=== PATIENT | female | born 1980 | race Caucasian/White ===

== ENCOUNTER 2016-12-20 09:51 | Emergency (ER) | payer BC, MEDICAID ==
[2016-12-20 10:29] VITALS: BP 117/78
--- NOTE | 2016-12-20 10:35 | ER Document Report ---
ED Medical Screen (RME) - General Stated Complaint: TOE PAIN Notes: Patient states child accidentally hit her left great toe which caused her toenail to bend backwards. Now having an odorous drainage from the toenail. I have greeted and performed a rapid initial assessment of this patient. A comprehensive ED assessment and evaluation of the patient, analysis of test results and completion of the medical decision making process will be conducted by additional ED providers. TRAVEL OUTSIDE OF THE [place] IN LAST 30 DAYS: No - Related Data Allergies/Adverse Reactions: levofloxacin [From Levaquin] Allergy (Severe, Verified 12/20/16 10:34) RASH telithromycin [From KETEK] Allergy (Severe, Verified 12/20/16 10:34) RASH hydrocodone bitartrate [From Vicodin] Adverse Reaction (Intermediate, Verified 12/20/16 10:34) Shortness of Breath Past Medical History - Past Medical History Cardiac Medical History: Denies: Hx Coronary Artery Disease, Hx Heart Attack, Hx Hypertension Pulmonary Medical History: Denies: Hx Asthma, Hx Bronchitis, Hx COPD, Hx Pneumonia Neurological Medical History: Denies: Hx Cerebrovascular Accident, Hx Seizures Musculoskeltal Medical History: Denies Hx Arthritis - Immunizations Hx Diphtheria, Pertussis, Tetanus Vaccination: Yes Physical Exam - Vital signs Vitals: Temp Pulse Resp BP Pulse Ox 98.0 F 91 18 117/78 99 12/20/16 10:12/20/16 10:12/20/16 10:12/20/16 10:12/20/16 10:27 - Skin Notes: No drainage noted from left great toe. Course - Vital Signs Vital signs: Temp Pulse Resp BP Pulse Ox 98.0 F 91 18 117/78 99 12/20/16 10:12/20/16 10:12/20/16 10:12/20/16 10:12/20/16 10:27
[2016-12-20] MEDS ORDERED: SULFAMETHOXAZOLE/TRIMETHOPRIM 800-160 MG TABLET PO ONE (12:33)
--- NOTE | 2016-12-20 12:33 | ER Document Report ---
HPI - HPI Patient complains to provider of: great toe injury Onset: Other - Friday Onset/Duration: Sudden Quality of pain: Achy Pain Level: 4 Context: 36-year-old female son stepped on her left great toe causing the nail to flip back completely but it was still intact and connected at the nail bed. Since then 2 other times it's been stepped on. She is concerned that it is infected. There is some redness at the nail bed but it is not any worse than it was on Friday but she does have some exudate coming out from under the nail. No lymphangitis Associated Symptoms: None Exacerbated by: Walking Relieved by: Denies Similar symptoms previously: No Recently seen / treated by doctor: No - ROS ROS below otherwise negative: Yes Systems Reviewed and Negative: Yes All other systems reviewed and negative - REPRODUCTIVE Reproductive: REPORTS: : - DERM Skin Color: Normal Past Medical History - General Information source: Patient - Social History Smoking Status: Never Smoker Chew tobacco use (# tins/day): No Frequency of alcohol use: None Drug Abuse: None Lives with: Spouse/Significant other Family History: Reviewed & Not Pertinent Renal/ Medical History: Denies: Hx Peritoneal Dialysis Surgical Hx: Negative - Immunizations Hx Diphtheria, Pertussis, Tetanus Vaccination: Yes Vertical Provider Document - CONSTITUTIONAL Agree With Documented VS: Yes - INFECTION CONTROL TRAVEL OUTSIDE OF THE [place] IN LAST 30 DAYS: No - HEENT HEENT: Normocephalic - NECK Neck: Supple - RESPIRATORY O2 Sat by Pulse Oximetry: 99 - MUSCULOSKELETAL/EXTREMETIES Musculoskeletal/Extremeties: MAEW, FROM, Tender - minimal over the inflamed medial and lateral left great toenail nailbed. - NEURO Level of Consciousness: Awake, Alert - DERM Integumentary: Warm, Dry Course - Vital Signs Vital signs: Temp Pulse Resp BP Pulse Ox 98.0 F 91 18 117/78 99 12/20/16 10:27 12/20/16 10:27 12/20/16 10:27 12/20/16 10:27 12/20/16 10:27 Discharge - Discharge Clinical Impression: inflamed left great toe Injury of toenail Qualifiers: Encounter type: initial encounter Laterality: left Qualified Code(s): S99.922A - Unspecified injury of left foot, initial encounter Condition: Good Disposition: HOME, SELF-CARE Instructions: Infections ([facility]), Trimethoprim-Sulfa ([facility]) Additional Instructions: Soak toe warm soapy water 15 minutes 2 times a day Use bandage to keep the nail down Take the antibiotic prescribed Keep the nail filed her clipped down as it grows out See outplacement consultant if nail growth is a problem Return to the emergency room if increased redness pain Please complete the patient satisfaction survey if you get one, and return it.. If you do not receive a survey, then you can go to the [facility] website, [email or web address] and place your comments about your very good care. Thank you very much. It was a pleasure being your medical provider today. Prescriptions: Sulfamethoxazole/Trimethoprim [Septra-Ds 800-160 mg Tablet] 1 tab PO BID #14 tablet Referrals: KARINA ALFARO MD [Primary Care Provider] - Follow up as needed RADHA FINNEY DPM [ACTIVE STAFF] - Follow up as needed
== END 2016-12-20 12:53 | disposition home or self-care (01) ==
LOC: ER 09:51
DX: S99.922A Unspecified injury of left foot, initial encounter (principal); W50.0XXA Accidental hit or strike by another person, initial encounter
CPT/HCPCS: 99283

== ENCOUNTER 2018-08-09 17:47 | Emergency (ER) | payer SELFPAY ==
[2018-08-09 17:53] VITALS: BP 126/87
--- NOTE | 2018-08-09 18:25 | RADIOLOGY REPORT (SQ) ---
EXAM DESCRIPTION: FOOT RIGHT COMPLETE COMPLETED DATE/TIME: 08/09/2018 6:10 pm REASON FOR STUDY: Right foot pain after twisting injury COMPARISON: None. NUMBER OF VIEWS: Three views. TECHNIQUE: AP, lateral and oblique radiographic images acquired of the right foot. LIMITATIONS: None. FINDINGS: MINERALIZATION: Normal. BONES: Oblique minimally displaced fracture of the base of the 5th metatarsal. No additional fractur e. Alignment is otherwise normal. Joint spaces are normal. No erosions. Bone density is normal. JOINTS: No effusions. SOFT TISSUES: Mild soft tissue swelling overlying the base of the 5th metatarsal. No foreign body. OTHER: No other significant finding. IMPRESSION: Minimally displaced fracture of the base of the 5th metatarsal. TECHNICAL DOCUMENTATION: JOB ID: [id number] [employer]- All Rights Reserved Reading location - IP/workstation name: HE
--- NOTE | 2018-08-09 18:32 | ER Document Report ---
HPI - HPI Pain Level: 4 Notes: Patient is a 38-year-old female who presents with chief complaint of right foot and ankle pain. Patient reports she stepped wrong coming at her front door and felt a crack. Patient denies any other complaints today. - CONSTITUTIONAL Constitutional: DENIES: Fever, Chills - EENT EENT: DENIES: Sore Throat, Ear Pain, Eye problems - NEURO Neurology: DENIES: Headache, Weakness, Vision blurred, Dizzinesss / Vertigo - CARDIOVASCULAR Cardiovascular: DENIES: Chest pain - RESPIRATORY Respiratory: DENIES: Trouble Breathing, Coughing - GASTROINTESTINAL Gastrointestinal: DENIES: Abdominal Pain, Black / Bloody Stools - URINARY Urinary: DENIES: Dysuria, Urgency, Frequency - REPRODUCTIVE Reproductive: REPORTS: : - MUSCULOSKELETAL Musculoskeletal: REPORTS: Extremity pain - RIGHT ANKLE Past Medical History - General Information source: Patient - Social History Smoking Status: Current Every Day Smoker Chew tobacco use (# tins/day): No Frequency of alcohol use: None Drug Abuse: None Family History: Reviewed & Not Pertinent Patient has suicidal ideation: No Patient has homicidal ideation: No - Past Medical History Cardiac Medical History: Denies: Hx Coronary Artery Disease, Hx Heart Attack, Hx Hypertension Pulmonary Medical History: Denies: Hx Asthma, Hx Bronchitis, Hx COPD, Hx Pneumonia Neurological Medical History: Denies: Hx Cerebrovascular Accident, Hx Seizures Renal/ Medical History: Denies: Hx Peritoneal Dialysis Musculoskeletal Medical History: Denies Hx Arthritis Psychiatric Medical History: Reports: Hx Depression Past Surgical History: Reports: Hx Cholecystectomy - Immunizations Hx Diphtheria, Pertussis, Tetanus Vaccination: Yes Vertical Provider Document - CONSTITUTIONAL Notes: PHYSICAL EXAMINATION: GENERAL: Well-appearing, well-nourished and in no acute distress. HEAD: Atraumatic, normocephalic. EYES: Pupils equal round extraocular movements intact, conjunctiva are normal. ENT: Nares patent NECK: Normal range of motion LUNGS: No respiratory distress Musculoskeletal: Normal range of motion, swelling and ecchymosis noted to right foot on the dorsal surface. Cap refill less than 3 seconds, normal motor and sensation distal to injury. NEUROLOGICAL: Normal speech, normal gait. PSYCH: Normal mood, normal affect. SKIN: Warm, Dry, normal turgor, no rashes or lesions noted. - INFECTION CONTROL TRAVEL OUTSIDE OF THE [place] IN LAST 30 DAYS: No Course - Re-evaluation Re-evalutation: X-ray reveals a right fifth metatarsal fracture. Patient will be placed in splint and discharged home in stable condition. Follow-up with orthopedics. - Vital Signs Vital signs: Temp Pulse Resp BP Pulse Ox 98.5 F 94 16 126/87 H 99 08/09/18 17:50 08/09/18 17:50 08/09/18 17:50 08/09/18 17:50 08/09/18 17:50 Procedures - Immobilization Right ankle Pre-Proc Neuro Vasc Exam: Normal Immobilizer type: Crutches, Posterior ankle Performed by: PCT Post-Proc Neuro Vasc Exam: Normal Alignment checked and good: Yes Discharge - Discharge Clinical Impression: Metatarsal bone fracture Qualifiers: Encounter type: initial encounter Metatarsal bone: fifth Fracture type: closed Fracture alignment: displaced Laterality: right Qualified Code(s): S92.351A - Displaced fracture of fifth metatarsal bone, right foot, initial encounter for closed fracture Condition: Stable Disposition: HOME, SELF-CARE Additional Instructions: Fracture You have a fracture. The typical broken bone requires only protection and sufficient time for healing. "Setting" is necessary only if the bones are crooked or out of position. The physician will re-assess you periodically to make certain that the bone heals without complications. It's important that you follow the instructions given you. The initial treatment is immobilization, elevation of the injury, and cold packs. Not all fractures require a cast. Depending on the location and type of fracture, immobilization may consist of a splint, cast, sling, bulky dressing , or simply rest. The length of time required for healing depends on the location and type of fracture, and on the age of the patient. The treatment plan the physician has outlined for you is customized to your fracture and health condition. Call the doctor or return at once if pain becomes severe, or if severe swelling or numbness develop. Ice & Elevation Apply ice packs frequently against the painful area. Many different schedules are recommended, such as "20 minutes on, 20 minutes off" or "one hour ice, two hours rest." If you need to work, you may need to go longer between ice treatments. You should plan to have the area ice packed AT LEAST one- fourth of the time. The ice should be applied over the wrap, tape, or splint, or over a layer of cloth -- not directly against the skin. Some ice bags have a built-in cloth and can be put directly on the skin. Your injured part should be elevated as much as possible over the next 48 hours. Try to keep the injury above the level of the heart. Avoid use of the injured area. Elevation and rest will decrease the swelling. Splint Pending Casting Your injury can't be casted until the swelling has subsided. Therefore, a temporary splint has been placed to protect the injury. Full use of an injured area is not possible in a splint. You should follow the doctor's instructions concerning rest, ice, and elevation of the injury. Never do anything which causes pain under the splint. Keep the splint on ALL THE TIME until you return for casting. If there is unexpected severe pain, or numbness, discoloration, or swelling beyond the splint, you should return at once. Use of Crutches The doctor has recommended that you not bear weight at this time. You will need to use crutches. Adjust the crutches so the tops come to about two inches under the armpit while you are standing upright. Use your hands -- not your armpits -- to support your weight. To get into a chair, support yourself with one crutch on the injured side. Hold the chair with the other hand, then lower yourself while putting all your weight on the good leg. Going up stairs is `good leg up, step up, then bring up crutches and bad leg.' Down stairs is `bad leg and crutches down, then bring good leg down.' If you develop numbness or swelling in an arm or hand, you are using the crutches incorrectly. Return if you are having any problems with the crutches. Take ibuprofen 600 mg every 6 hours for pain and inflammation. Use the hydrocodone for severe pain only as prescribed. Follow-up with orthopedics as we discussed. Absolutely no weightbearing until you have been cleared by orthopedics. Prescriptions: Hydrocodone Bit/Acetaminophen [Hydrocodon-Acetaminophen 5-325] 1 each PO Q4H # 12 tablet Forms: Return to Work Referrals: RAUL KAMINSKI MD [ACTIVE STAFF] - Follow up as needed
== END 2018-08-09 18:57 | disposition home or self-care (01) ==
LOC: ER 17:47
DX: O9A.219 Injury, poisoning and certain other consequences of external causes complicating pregnancy, unspecified trimester (principal); S92.351A Displaced fracture of fifth metatarsal bone, right foot, initial encounter for closed fracture; O99.89 Other specified diseases and conditions complicating pregnancy, childbirth and the puerperium; M25.571 Pain in right ankle and joints of right foot; X50.0XXA Overexertion from strenuous movement or load, initial encounter; O99.330 Smoking (tobacco) complicating pregnancy, unspecified trimester
CPT/HCPCS: 99283

== ENCOUNTER 2019-02-23 18:12 | Emergency (ER) | payer SELFPAY ==
--- NOTE | 2019-02-23 20:11 | ER Document Report ---
HPI - HPI Patient complains to provider of: Right foot pain Time Seen by Provider: 02/23/19 20:02 Onset: This morning Onset/Duration: Sudden Quality of pain: Achy Pain Level: 4 Context: Patient states she was walking in her house and had a sudden onset of right lateral foot pain. Patient states she has a previous history of fracture last year to the fifth metatarsal and has pain in the same location with swelling. Patient denies any recent traumatic injury. Associated Symptoms: Other - Right foot pain Exacerbated by: Standing, Movement, Walking Relieved by: Denies Similar symptoms previously: Yes Recently seen / treated by doctor: No - ROS ROS below otherwise negative: Yes Systems Reviewed and Negative: Yes All other systems reviewed and negative - NEURO Neurology: DENIES: Weakness - GASTROINTESTINAL Gastrointestinal: DENIES: Nausea - REPRODUCTIVE Reproductive: DENIES: : - MUSCULOSKELETAL Musculoskeletal: REPORTS: Extremity pain, Swelling - DERM Skin Problems: None Past Medical History - General Information source: Patient - Social History Smoking Status: Never Smoker Frequency of alcohol use: None Drug Abuse: None Occupation: None Lives with: Spouse/Significant other Family History: Reviewed & Not Pertinent Renal/ Medical History: Denies: Hx Peritoneal Dialysis Musculoskeletal Medical History: Denies Hx Arthritis Psychiatric Medical History: Reports: Hx Anxiety, Hx Depression Past Surgical History: Reports: Hx Cholecystectomy - Immunizations Hx Diphtheria, Pertussis, Tetanus Vaccination: Yes Vertical Provider Document - CONSTITUTIONAL Agree With Documented VS: Yes Exam Limitations: No Limitations General Appearance: WD/WN, No Apparent Distress - INFECTION CONTROL TRAVEL OUTSIDE OF THE [place] IN LAST 30 DAYS: No - HEENT HEENT: Atraumatic, Normocephalic - NECK Neck: Normal Inspection - RESPIRATORY Respiratory: No Respiratory Distress - CARDIOVASCULAR Pulses: Normal: Dorsalis pedis - BACK Back: Normal Inspection - MUSCULOSKELETAL/EXTREMETIES Musculoskeletal/Extremeties: MAEW, Tender - Tenderness to right foot to the base of the fifth metatarsal with overlying edema, Edema - NEURO Level of Consciousness: Awake, Alert, Appropriate Motor/Sensory: No Motor Deficit - DERM Integumentary: Warm, Dry, No Rash Course - Re-evaluation Re-evalutation: 02/23/19 20:10 Offered patient pain medication, patient declined 02/23/19 20:14 pt now requesting pain medication 02/23/19 21:02 Patient without any acute fracture noted on radiology report. Patient does have objective swelling at point of tenderness. Will immobilize and encourage outpatient follow-up with her orthopedic surgeon for recheck. Patient states that she does have crutches in her vehicle. - Vital Signs Vital signs: Temp Pulse Resp BP Pulse Ox 98.2 F 103 H 15 123/86 H 100 02/23/19 18:39 02/23/19 18:39 02/23/19 18:39 02/23/19 18:39 02/23/19 18:39 - Diagnostic Test Radiology reviewed: Image reviewed, Reports reviewed Procedures - Immobilization Right Foot Pre-Proc Neuro Vasc Exam: Normal Immobilizer type: Posterior ankle Performed by: PCT Post-Proc Neuro Vasc Exam: Normal Alignment checked and good: Yes Discharge - Discharge Clinical Impression: Right foot pain Condition: Stable Disposition: HOME, SELF-CARE Instructions: Use of Crutches ([facility]), Ice & Elevation ([facility]), Oral Narcotic Medication ([facility]), Possible Hidden Fracture ([facility]), Temporary Splint ([facility]) Additional Instructions: Return immediately for any new or worsening symptoms Followup with your primary care provider, call tomorrow to make a followup appointment With Dr. Kaminski for a recheck, call tomorrow for an appointment Prescriptions: Naproxen [Naprosyn 250 Nmg Tablet] 1 tab PO BID #14 tablet Oxycodone HCl/Acetaminophen [Percocet 5-325 mg Tablet] 1 tab PO ASDIR PRN #10 tablet PRN Reason: Referrals: KARINA ALFARO MD [Primary Care Provider] - Follow up as needed RAUL KAMINSKI MD [ACTIVE STAFF] - Follow up tomorrow
[2019-02-23] MEDS ORDERED: OXYCODONE-ACETAMINOPHEN 5-325 MG TABLET PO ONE (20:14)
--- NOTE | 2019-02-23 20:54 | RADIOLOGY REPORT (SQ) ---
EXAM DESCRIPTION: XR FOOT 3 OR MORE VIEWS COMPLETED DATE/TME: 02/23/2019 20:10 CLINICAL HISTORY: 38 years, Female, r 5th MT pain, swelling COMPARISON: 08/09/2018. NUMBER OF VIEWS: Three TECHNIQUE: Three views of the RIGHT foot were obtained in AP, lateral and oblique projection. LIMITATIONS: None. FINDINGS: Deformity of the base of the fifth digit metatarsal suggests sequela of prior fracture. No acute fracture or dislocation is identified. The soft tissues are within normal limits. The joint spaces are preserved. IMPRESSION: 1. Chronic deformity of the base of the fifth digit metatarsal compatible with sequela of prior fracture. 2. No acute fracture or dislocation. copyright 2010 [employer]- All Rights Reserved
[2019-02-23 21:32] VITALS: BP 123/83
== END 2019-02-23 21:39 | disposition home or self-care (01) ==
LOC: ER 18:12
DX: M79.671 Pain in right foot (principal); Z90.49 Acquired absence of other specified parts of digestive tract
CPT/HCPCS: 99283

== ENCOUNTER 2019-07-29 05:30 | Day surgery (SDC) | payer OTHER ==
[2019-07-27 10:44] LABS: APPEARANCE,URINE CLEAR; BILIRUBIN,URINE NEGATIVE (NEGATIVE); COLOR,URINE STRAW; GLUCOSE, URINE NEGATIVE (NEGATIVE); KETONES,URINE NEGATIVE (NEGATIVE); LEUKOCYTE ESTERASE,URINE NEGATIVE (NEGATIVE); NITRITE,URINE NEGATIVE (NEGATIVE); PROTEIN,URINE NEGATIVE (NEGATIVE)
[2019-07-27 10:45] LABS: URINE SPECIFIC GRAVITY 1.014
[2019-07-27 10:54] LABS: HEMATOCRIT 35.6 % (36.0-47.0); HEMOGLOBIN 11.1 g/dL (12.0-15.5); MEAN CORPUSCULAR HEMOGLOBIN 22.7 pg (27.0-33.4); MEAN CORPUSCULAR HGB CONC 31.3 g/dL (32.0-36.0); MEAN CORPUSCULAR VOLUME 73 fl (80-97); PLATELET COUNT 384 10^3/uL (150-450); WHITE BLOOD COUNT 6.1 10^3/uL (4.0-10.5)
[2019-07-27 11:49] LABS: ALBUMIN 4.4 g/dL (3.5-5.0); ALKALINE PHOSPHATASE 66 U/L (38-126); ANION GAP 10 (5-19); ASPARTATE AMINO TRANSFERASE 23 U/L (14-36); BILIRUBIN,DIRECT 0.1 mg/dL (0.0-0.4); BILIRUBIN,TOTAL 0.4 mg/dL (0.2-1.3); BLOOD UREA NITROGEN 11 mg/dL (7-20); CALCIUM 9.5 mg/dL (8.4-10.2); CARBON DIOXIDE 27 mmol/L (22-30); CHLORIDE 102 mmol/L (98-107); POTASSIUM 4.6 mmol/L (3.6-5.0); TOTAL PROTEIN 7.3 g/dL (6.3-8.2)
[2019-07-27 11:57] LABS: GLUCOSE 66 mg/dL (75-110)
[~2019-07-29 05:30] MED LIST: CLINDAMYCIN 900 MG/D5W RTU 900 MG/50 ML RTUPB IV ONE; CLINDAMYCIN 900 MG/D5W RTU 900 MG/50 ML RTUPB IV PRN; GENTAMICIN SULFATE 120 MG in DEXTROSE 5%-WATER 100 ML IV PRN; LACTATED RINGERS 1000 ML IV PRN; LIDOCAINE 0.5% INJ-PF (5 MG/ML) 50 ML SDV SUBCUT PRN
[2019-07-29] MEDS ORDERED: MIDAZOLAM 2 MG/2 ML INJ ONE ×2 (06:41→07:10)
[2019-07-29] MEDS ORDERED: ONDANSETRON HCL INJ/PF 4 MG/2 ML SDV ONE (06:41)
[2019-07-29] MEDS ORDERED: MIDAZOLAM 2 MG/2 ML INJ IV ONE (07:00)
[2019-07-29] MEDS ORDERED: ONDANSETRON HCL INJ/PF 4 MG/2 ML SDV IV ONE (07:00)
[2019-07-29] MEDS ORDERED: METHYLENE BLUE 50 MG/10 ML AMPULE ONE (07:06)
[2019-07-29] MEDS ORDERED: BUPIVACAINE HCL 0.5%/EPI 1:200000 INJ 1.8 ML CARTRIDGE ONE (07:06)
[2019-07-29] MEDS ORDERED: PROPOFOL INJ 200 MG/20 ML VIAL IV ONE (07:10)
[2019-07-29] MEDS ORDERED: FENTANYL CITRATE INJ/PF 250 MCG/5 ML AMPULE ONE (07:10)
[2019-07-29] MEDS ORDERED: LIDOCAINE 0.5%/EPINEPHRINE INJ 50 ML VIAL ONE (07:39)
[2019-07-29] MEDS ORDERED: LIDOCAINE 0.5%/EPINEPHRINE INJ 50 ML VIAL INJ ONE (07:40)
[2019-07-29] MEDS ORDERED: FENTANYL CITRATE INJ/PF 100 MCG/2 ML AMPUL IV PRN ×3 (07:45)
[2019-07-29] MEDS ORDERED: DIPHENHYDRAMINE HCL 50 MG/ML VIAL IV PRN (07:45)
[2019-07-29] MEDS ORDERED: OXYCODONE-ACETAMINOPHEN 5-325 MG TABLET PO PRN ×2 (07:45)
[2019-07-29] MEDS ORDERED: MEPERIDINE HCL/PF INJ 25 MG/1 ML DISP.SYRIN IV PRN (07:45)
[2019-07-29] MEDS ORDERED: PROMETHAZINE HCL INJ 25 MG/1 ML VIAL IV PRN ×2 (07:45)
[2019-07-29] MEDS ORDERED: GLYCOPYRROLATE 1 MG/5 ML VIAL ONE (08:30)
[2019-07-29] MEDS ORDERED: KETOROLAC TROMETHAMINE 60 MG/2 ML SDV ONE (08:30)
[2019-07-29] MEDS ORDERED: SUCCINYLCHOLINE CHLORIDE INJ 200 MG/10 ML VIAL ONE (08:30)
[2019-07-29] MEDS ORDERED: LIDOCAINE 2% INJ-PF (20 MG/ML) 2 ML AMPUL ONE (08:30)
[2019-07-29] MEDS ORDERED: DEXAMETHASONE SOD PHOSPHATE INJ 4 MG/1 ML VIAL ONE (08:30)
[2019-07-29] MEDS ORDERED: PROMETHAZINE HCL INJ 25 MG/1 ML VIAL ONE (09:05)
[2019-07-29] MEDS: FENTANYL CITRATE INJ/PF 100 MCG/2 ML AMPUL ONE ×2 (09:05→09:15)
[2019-07-29] MEDS ORDERED: ACETAMINOPHEN 1,000 MG/100 ML RTUPB IV ONE ×2 (09:06→17:00)
--- NOTE | 2019-07-29 09:13 | Operative Report ---
Operative Report DATE OF SURGERY: 07/29/19 PREOPERATIVE DIAGNOSIS: abnormal uterine bleeding, anemia, pelvic pain POSTOPERATIVE DIAGNOSIS: Same OPERATION: Transvaginal hysterectomy with bilateral salpingectomy SURGEON: AMY HODGSON ANESTHESIA: GA TISSUE REMOVED OR ALTERED: Uterus cervix and bilateral fallopian tubes COMPLICATIONS: None ESTIMATED BLOOD LOSS: 320 cc INTRAOPERATIVE FINDINGS: 12-week size uterus boggy in appearance consistent with adenomyosis right ovary with cyst benign-appearing on it, left ovary normal. Fallopian clips removed with fallopian tubes at the time of salpingectomies PROCEDURE: Patient was taken to the operating room prepared and draped in normal sterile fashion a dorsal lithotomy position in [facility]. Placed in the posterior fourchette retractor was placed in the anterior fourchette. Cervix was grasped with a triple tooth tenaculum and injected circumferentially with 10 cc of lidocaine with epi. The cervix was then scored with a 10 blade and a circumferential fashion and was dissected away from the uterus using Salgado's. The anterior cul-de-sac was entered sharply with the Mayos and the [place] blade was placed in the anterior cul-de-sac underneath the bladder. Posterior cul-de-sac was then also entered sharply and the weighted speculum was replaced with a long weighted speculum. the uterosacral ligaments were then clamped and cut with Janee clamps and Salgado scissors these pedicles were tied off with 2-0 Vicryl tagged with hemostats. The rest of the uterine artery was then ligated on both sides using the LigaSure. The uterus was flipped once we reached the fundus of the mucosa was ligated using the LigaSure specimen was completely freed. We swept the bowel back with sponge sticks were the fallopian tubes were visible the fallopian tubes were removed using the LigaSure following the mesosalpinx. The vaginal cuff was found to be bleeding slightly on the right apex. There of 8 suture was placed with 0 Vicryl pop-off and hemostasis was obtained at this point. the angle of the vaginal cuff was then with grasped pickups and the vaginal cuff was closed with an 0 Vicryl runner. The procedure was then concluded. A small cole in the vaginal mucosa was noted right vaginal sidewall was closed with a [id number] suture of 0 Vicryl pop-off. Patient was taken to recovery in stable condition sponge lap and needle counts were correct x2
[2019-07-29] MEDS ORDERED: RINGERS SOLUTION,LACTATED 1,000 ML IV PRN (09:17)
[2019-07-29] MEDS: OXYCODONE-ACETAMINOPHEN 5-325 MG TABLET PO PRN (11:40)
[2019-07-29 12:47] LABS: HEMATOCRIT 25.8 % (36.0-47.0); MEAN CORPUSCULAR HEMOGLOBIN 23.2 pg (27.0-33.4); MEAN CORPUSCULAR HGB CONC 31.6 g/dL (32.0-36.0); MEAN CORPUSCULAR VOLUME 74 fl (80-97); RED BLOOD COUNT 3.52 10^6/uL (3.72-5.28); RED CELL DISTRIBUTION WIDTH 25.1 % (11.5-14.0)
[2019-07-29] MEDS: MORPHINE SULFATE 10 MG/ML INJ IV PRN ×2 (12:49→18:41)
[2019-07-29] MEDS ORDERED: RINGERS SOLUTION,LACTATED 1,000 ML IV ONE (13:00)
[2019-07-29 13:01] LABS: WHITE BLOOD COUNT 14.1 10^3/uL (4.0-10.5)
[2019-07-29 13:02] LABS: HEMOGLOBIN 8.2 g/dL (12.0-15.5); PLATELET COUNT 343 10^3/uL (150-450)
[2019-07-29] MEDS: KETOROLAC TROMETHAMINE INJ/PF 30 MG/1 ML SDV IV SCH ×2 (14:43→23:13)
[2019-07-29] MEDS ORDERED: HYDROXYZINE PAMOATE 50 MG CAPSULE PO SCH (22:00)
[2019-07-29] MEDS ORDERED: LORAZEPAM 0.5 MG TABLET PO PRN (22:11)
[2019-07-30] MEDS: OXYCODONE-ACETAMINOPHEN 5-325 MG TABLET PO PRN ×4 (00:57→21:20)
[2019-07-30] MEDS: KETOROLAC TROMETHAMINE INJ/PF 30 MG/1 ML SDV IV SCH (05:34)
[2019-07-30 05:45] LABS: HEMATOCRIT 21.9 % (36.0-47.0); MEAN CORPUSCULAR HEMOGLOBIN 23.7 pg (27.0-33.4); MEAN CORPUSCULAR HGB CONC 32.4 g/dL (32.0-36.0); MEAN CORPUSCULAR VOLUME 73 fl (80-97); PLATELET COUNT 348 10^3/uL (150-450); RED CELL DISTRIBUTION WIDTH 25.4 % (11.5-14.0); WHITE BLOOD COUNT 12.1 10^3/uL (4.0-10.5)
[2019-07-30 06:22] LABS: HEMOGLOBIN 7.1 g/dL (12.0-15.5)
[2019-07-30] MEDS ORDERED: FERROUS SULFATE 325 MG TABLET PO SCH (10:00)
[2019-07-30] MEDS ORDERED: WELLBUTRIN 150 MG PO SCH (10:00)
[2019-07-30] MEDS ORDERED: CYANOCOBALAMIN (VITAMIN B-12) 1,000 MCG TABLET PO SCH (10:00)
[2019-07-30] MEDS ORDERED: ACETAMINOPHEN 325 MG TABLET PO ONE (10:30)
[2019-07-30] MEDS ORDERED: DIPHENHYDRAMINE HCL 50 MG CAPSULE PO ONE (10:30)
[2019-07-30] MEDS ORDERED: IBUPROFEN 800 MG TABLET PO PRN (14:00)
--- NOTE | 2019-07-30 17:39 | PDOC DISCHARGE SUMMARY ---
Impression - Admit/DC Date/PCP Admission Date/Primary Care Provider: KARINA ALFARO MD Discharge Date: 07/30/19 - Discharge Diagnosis (1) Pelvic pain Is this a current diagnosis for this admission?: Yes (2) Abnormal uterine bleeding (AUB) Is this a current diagnosis for this admission?: Yes (3) Anemia Is this a current diagnosis for this admission?: Yes (4) Blood transfusion during current hospitalisation Is this a current diagnosis for this admission?: Yes - Assessment Summary: 39yo with AUB and pelvic pain and anemia presented to [facility] for scheduled Hysterectomy - Additional Information Resuscitation Status: Full Code Discharge Diet: As Tolerated Discharge Activity: Activity As Tolerated, No Driving, No Lifting Over 10 Pounds, Pelvic Rest Referrals: AMY HODGSON MD [ACTIVE STAFF] - 08/13/19 1:00 pm (Please keep your scheduled follow up appointment with Dr Hodgson on 08/13/19 at 1:00. If you have any questions please call the office directly at .) Prescriptions: Oxycodone HCl/Acetaminophen [Percocet 5-325 mg Tablet] 2 tab PO Q6HP PRN 7 Days #30 tablet PRN Reason: Ibuprofen [Motrin 800 mg Tablet] 800 mg PO Q8HP PRN 30 Days #90 tablet PRN Reason: Docusate Sodium [Colace 100 mg Capsule] 100 mg PO BID 30 Days #60 capsule Ferrous Sulfate [Feosol 325 mg Tablet] 325 mg PO BID 30 Days #60 tablet Simethicone [Gas Relief 80] 80 mg PO QID 15 Days #60 tab.chew Home Medications: Bupropion HCl [Bupropion Xl] 150 mg PO DAILY 07/27/19 Hydroxyzine HCl [Atarax 25 mg Tablet] 50 mg PO QHS 07/27/19 Cyanocobalamin (Vitamin B-12) [Vitamin B-12 1000 mcg Tablet] 1,000 mcg PO DAILY 07/29/19 Cyanocobalamin (Vitamin B-12) [Vitamin B-12 1000 mcg Tablet] 1,000 mcg PO DAILY tablet 07/30/19 Docusate Sodium [Colace 100 mg Capsule] 100 mg PO BID 30 Days #60 capsule 07/30/19 Ferrous Sulfate [Feosol 325 mg Tablet] 325 mg PO BID 30 Days #60 tablet 07/30/19 Hydroxyzine Pamoate [Vistaril 50 mg Capsule] 50 mg PO QHS capsule 07/30/19 Ibuprofen [Motrin 800 mg Tablet] 800 mg PO Q8HP PRN 30 Days #90 tablet 07/30/19 Lorazepam [Ativan 0.5 mg Tablet] 0.5 mg PO Q6HP PRN tablet 07/30/19 Oxycodone HCl/Acetaminophen [Percocet 5-325 mg Tablet] 2 tab PO Q6HP PRN 7 Days #30 tablet 07/30/19 Simethicone [Gas Relief 80] 80 mg PO QID 15 Days #60 tab.chew 07/30/19 History of Present Illiness History of Present Illness: ADAIR CURRY is a 39 year old female with AUB and pelvic pain and anemia presented to [facility] for scheduled Hysterectomy (transvaginal hysterectomy with bilateral salpingectomy) and was noted to be anemic on postop day #1 and transfusion 2 units on POD#1. Hospital Course Hospital Course: 39 year old female with AUB and pelvic pain and anemia presented to [facility] for scheduled Hysterectomy (transvaginal hysterectomy with bilateral salpingectomy) and was noted to be anemic on postop day #1 and transfusion 2 units on POD#1. Due to delay of transfusion and long time to give 2 units and then repeat CBC. Upon return of labs it was just aftermidnight on 07/31. Reviewed with patient that she could stay but she desires to go home. Pt c/o itching now several hours after infusion of PRBCs. Plan for give vistaril at home. F/u in the office as scheduled. Physical Exam - Physical Exam Vital Signs: Temp Pulse Resp BP Pulse Ox 98.3 F 67 16 104/58 L 100 07/30/19 16:15 07/30/19 16:15 07/30/19 16:15 07/30/19 16:15 07/30/19 16:15 Intake & Output 07/29/19 07/30/19 07/31/19 06:59 06:59 06:59 Intake Total 1530 300 Output Total 2250 250 Balance -720 50 Weight 74.84 kg General appearance: PRESENT: no acute distress, well-developed, well-nourished Head exam: PRESENT: atraumatic, normocephalic Respiratory exam: PRESENT: clear to auscultation carmel, symmetrical, unlabored Cardiovascular exam: PRESENT: RRR. ABSENT: diastolic murmur, rubs, systolic murmur Pulses: PRESENT: normal dorsalis pedis pul, +2 pedal pulses bilateral GI/Abdominal exam: PRESENT: normal bowel sounds, soft. ABSENT: distended, guarding, mass, organolmegaly, rebound, tenderness Rectal exam: PRESENT: deferred Neurological exam: PRESENT: alert, awake, oriented to person, oriented to place, oriented to time, oriented to situation, CN II-XII grossly intact. ABSENT: motor sensory deficit Psychiatric exam: PRESENT: appropriate affect, normal mood. ABSENT: homicidal ideation, suicidal ideation Skin exam: PRESENT: dry, intact, warm. ABSENT: cyanosis, rash Results Laboratory Results: WBC 12.1 10^3/uL (4.0-10.5) H 07/30/19 05:22 RBC 3.00 10^6/uL (3.72-5.28) L 07/30/19 05:22 Hgb 7.1 g/dL (12.0-15.5) L 07/30/19 05:22 Hct 21.9 % (36.0-47.0) L 07/30/19 05:22 MCV 73 fl (80-97) L 07/30/19 05:22 MCH 23.7 pg (27.0-33.4) L 07/30/19 05:22 MCHC 32.4 g/dL (32.0-36.0) 07/30/19 05:22 RDW 25.4 % (11.5-14.0) H 07/30/19 05:22 Plt Count 348 10^3/uL (150-450) 07/30/19 05:22 Sodium 139.3 mmol/L (137-145) 07/27/19 10:37 Potassium 4.6 mmol/L (3.6-5.0) 07/27/19 10:37 Chloride 102 mmol/L (98-107) 07/27/19 10:37 Carbon Dioxide 27 mmol/L (22-30) 07/27/19 10:37 Anion Gap 10 (5-19) 07/27/19 10:37 BUN 11 mg/dL (7-20) 07/27/19 10:37 Creatinine 0.82 mg/dL (0.52-1.25) 07/27/19 10:37 Est GFR ( Amer) > 60 (>60) 07/27/19 10:37 Est GFR (MDRD) Non-Af > 60 (>60) 07/27/19 10:37 Glucose 66 mg/dL (75-110) L 07/27/19 10:37 Calcium 9.5 mg/dL (8.4-10.2) 07/27/19 10:37 Total Bilirubin 0.4 mg/dL (0.2-1.3) 07/27/19 10:37 Direct Bilirubin 0.1 mg/dL (0.0-0.4) 07/27/19 10:37 Neonat Total Bilirubin Not Reportable 07/27/19 10:37 Neonat Direct Bilirubin Not Reportable 07/27/19 10:37 Neonat Indirect Bili Not Reportable 07/27/19 10:37 AST 23 U/L (14-36) 07/27/19 10:37 ALT 17 U/L (<35) 07/27/19 10:37 Alkaline Phosphatase 66 U/L (38-126) 07/27/19 10:37 Total Protein 7.3 g/dL (6.3-8.2) 07/27/19 10:37 Albumin 4.4 g/dL (3.5-5.0) 07/27/19 10:37 Urine Color STRAW 07/27/19 09:55 Urine Appearance CLEAR 07/27/19 09:55 Urine pH 7.0 (5.0-9.0) 07/27/19 09:55 Ur Specific Homer 1.014 07/27/19 09:55 Urine Protein NEGATIVE mg/dL (NEGATIVE) 07/27/19 09:55 Urine Glucose (UA) NEGATIVE mg/dL (NEGATIVE) 07/27/19 09:55 Urine Ketones NEGATIVE mg/dL (NEGATIVE) 07/27/19 09:55 Urine Blood NEGATIVE (NEGATIVE) 07/27/19 09:55 Urine Nitrite NEGATIVE (NEGATIVE) 07/27/19 09:55 Urine Bilirubin NEGATIVE (NEGATIVE) 07/27/19 09:55 Urine Urobilinogen 2.0 mg/dL (<2.0) H 07/27/19 09:55 Ur Leukocyte Esterase NEGATIVE (NEGATIVE) 07/27/19 09:55 Urine WBC (Auto) 1 /HPF 07/27/19 09:55 Urine RBC (Auto) 6 /HPF 07/27/19 09:55 Squamous Epi Cells Auto 4 /HPF 07/27/19 09:55 Urine Mucus (Auto) MANY /LPF 07/27/19 09:55 Urine Ascorbic Acid NEGATIVE (NEGATIVE) 07/27/19 09:55 Urine HCG, Qual NEGATIVE (NEGATIVE) 07/27/19 09:55 Blood Type O POSITIVE 07/30/19 10:47 Blood Type Confirm O POSITIVE 07/27/19 10:37 Antibody Screen NEGATIVE 07/30/19 10:47 Crossmatch See Detail 07/30/19 10:47 Plan Time Spent: Less than 30 Minutes Stroke Is this a Stroke Patient?: No Acute Heart Failure - Is this a Heart Failure Patient?: No
[2019-07-30 23:09] LABS: HEMATOCRIT 31.8 % (36.0-47.0); MEAN CORPUSCULAR HGB CONC 33.5 g/dL (32.0-36.0); PLATELET COUNT 307 10^3/uL (150-450); RED BLOOD COUNT 4.09 10^6/uL (3.72-5.28); WHITE BLOOD COUNT 8.7 10^3/uL (4.0-10.5)
[2019-07-30 23:14] LABS: HEMOGLOBIN 10.6 g/dL (12.0-15.5); MEAN CORPUSCULAR VOLUME 78 fl (80-97)
[2019-07-30 23:27] LABS: RED CELL DISTRIBUTION WIDTH 26.6 % (11.5-14.0)
--- NOTE | 2019-07-31 00:33 | PDOC PROGRESS REPORT ---
Subjective Progress Note for:: 07/30/19 Subjective:: doing well. feels dizzy with ambulation. Pt spoke with Dr. Awa carrera and agreed to transfusion which is in progress. Reason For Visit: N93.9 ABNORMAL UTERINE AND VAGINAL BLEEDING, UNSPE Physical Exam - Physical Exam Vital Signs: Temp Pulse Resp BP Pulse Ox 98.2 F 79 17 120/71 100 07/30/19 20:58 07/30/19 20:58 07/30/19 20:58 07/30/19 20:58 07/30/19 20:58 Intake & Output 07/29/19 07/30/19 07/31/19 06:59 06:59 06:59 Intake Total 1530 1600 Output Total 2250 250 Balance -720 1350 Weight 74.84 kg General appearance: PRESENT: no acute distress, well-developed, well-nourished Head exam: PRESENT: atraumatic, normocephalic Cardiovascular exam: PRESENT: RRR. ABSENT: diastolic murmur, rubs, systolic murmur GI/Abdominal exam: PRESENT: normal bowel sounds, soft. ABSENT: distended, guarding, mass, organolmegaly, rebound, tenderness Rectal exam: PRESENT: deferred Neurological exam: PRESENT: alert, awake, oriented to person, oriented to place, oriented to time, oriented to situation, CN II-XII grossly intact. ABSENT: motor sensory deficit Result Laboratory Results: 07/30/19 22:57 07/27/19 10:37 07/30/19 07/30/19 07/30/19 05:22 10:47 22:57 WBC 12.1 H 8.7 RBC 3.00 L 4.09 Hgb 7.1 L 10.6 L D Hct 21.9 L 31.8 L MCV 73 L 78 L D MCH 23.7 L 26.0 L MCHC 32.4 33.5 RDW 25.4 H 26.6 H Plt Count 348 307 Blood Type O POSITIVE Antibody Screen NEGATIVE Status: Imported from PACS Assessment & Plan - Diagnosis (1) Pelvic pain Is this a current diagnosis for this admission?: Yes Plan: s/p hysterectomy (2) Abnormal uterine bleeding (AUB) Is this a current diagnosis for this admission?: Yes Plan: s/p hysterectomy (3) Anemia Qualifiers: Anemia type: iron deficiency Iron deficiency anemia type: chronic blood loss Qualified Code(s): D50.0 - Iron deficiency anemia secondary to blood loss (chronic) Is this a current diagnosis for this admission?: Yes Plan: s/p hysterectomy (4) Blood transfusion during current hospitalisation Is this a current diagnosis for this admission?: Yes Plan: currently obtaining - Time Time Spent with patient: Less than 15 minutes Medications reviewed and adjusted accordingly: Yes Anticipated discharge: Home Within: within 24 hours - Inpatient Certification Based on my medical assessment, after consideration of the patient's comorbidities, presenting symptoms, or acuity I expect that the services needed warrant INPATIENT care.: Yes I certify that my determination is in accordance with my understanding of Medicare's requirements for reasonable and necessary INPATIENT services [42 CFR 412.3e].: Yes Medical Necessity: Need Close Monitoring Due to Risk of Patient Decompensation
[2019-07-31 04:51] VITALS: BP 119/68
== END 2019-07-31 02:01 | disposition home or self-care (01) ==
LOC: OROUT 05:30 → 2N 10:50 → OROUT 07-31 02:01
PROVIDERS: ATTEND Obstetrics & Gynecology
DX: N93.9 Abnormal uterine and vaginal bleeding, unspecified (principal); N71.9 Inflammatory disease of uterus, unspecified; N83.8 Other noninflammatory disorders of ovary, fallopian tube and broad ligament; N70.11 Chronic salpingitis; R10.2 Pelvic and perineal pain; D64.9 Anemia, unspecified; N92.1 Excessive and frequent menstruation with irregular cycle; Z87.891 Personal history of nicotine dependence; Z79.899 Other long term (current) drug therapy
CPT/HCPCS: 86900 ×2; 86901 ×2; 36415 ×2; 36430; 86850 ×2; 85027 ×2; 81025; 80053; 81001; 86920; 88307 ×2; 00944; 58262; P9016; J2250; J3490 ×5; J1100; J1885 ×3; J3010 ×2; J1580; J2270; J2550; J0330; J2405; J7060; J7120 ×2; J2704; J0131; 944; Q9968